=== PATIENT | female | born 1970 | race Caucasian/White ===

== ENCOUNTER 2021-11-16 12:29 | Emergency (ER) | payer BC, OTHER ==
[2021-11-16 12:47] VITALS: BP 137/80; PULSE 77; TEMP 97.7; BMI 24.7
[2021-11-16] MEDS ORDERED: SODIUM CHLORIDE 1,000 ML IV STA (13:34)
[2021-11-16 14:03] LABS: BASO % 0.3 % (0-2.0); EOS % 0.1 % (0-4.5); HEMATOCRIT 32.9 % (32.4-45.2); HEMOGLOBIN 11.3 GM/dL (10.7-15.3); LYMPH % 5.1 % (8-40); MCH 32.9 pg (25.7-33.7); MCHC 34.5 g/dl (32.0-36.0); MEAN CELL VOLUME 95.3 fl (80-96); MEAN PLT VOLUME 6.6 fl (7.5-11.1); MONO % 7.8 % (3.8-10.2); NEUT % 86.7 % (42.8-82.8); PLATELET COUNT 319 10^3/uL (134-434); RBC 3.45 M/mm3 (3.60-5.2); RDW 16.8 % (11.6-15.6); WHITE BLOOD COUNT 2.4 K/mm3 (4.0-10.0)
[2021-11-16 14:18] LABS: URINE APPEARANCE CLEAR; URINE BILIRUBIN NEGATIVE (NEGATIVE); URINE COLOR YELLOW; URINE GLUCOSE (UA) NEGATIVE (NEGATIVE); URINE KETONE NEGATIVE (NEGATIVE); URINE LEUK ESTERASE NEGATIVE (NEGATIVE); URINE NITRITE NEGATIVE (NEGATIVE); URINE PROTEIN NEGATIVE (NEGATIVE); URINE UROBILINOGEN 0.2 mg/dL (0.2-1.0)
[2021-11-16 14:23] LABS: ALBUMIN 4.4 g/dl (3.4-5.0); BLOOD UREA NITROGEN 9.3 mg/dL (7-18); CALCIUM 9.2 mg/dL (8.5-10.1)
[2021-11-16 14:26] LABS: CREATININE 0.8 mg/dL (0.55-1.3)
[2021-11-16 14:28] LABS: BILIRUBIN,TOTAL 0.8 mg/dL (0.2-1); TOT PROT 7.3 g/dl (6.4-8.2)
== END 2021-11-16 17:30 | disposition home or self-care (01) ==
LOC: JER 12:29
PROC: 3E0337Z Introduction of Electrolytic and Water Balance Substance into Peripheral Vein, Percutaneous Approach (ICD-10-PCS; principal; 2021-11-16)
DX: K60.2 Anal fissure, unspecified (principal); K64.4 Residual hemorrhoidal skin tags; K59.00 Constipation, unspecified
CPT/HCPCS: 36415; 74018-TC-FY; 74177-TC; 80053; 81003; 85025; 86850; 86900; 86901; 99285-25; Q9967